=== PATIENT | male | born 1965 | race Caucasian/White ===

== ENCOUNTER 2022-03-15 13:53 | Inpatient (IN) | payer OTHER ==
[~2022-03-15] VITALS: Ht 175.3 cm; Wt 81.1 kg
[2022-03-15] MEDS ORDERED: SODIUM CHLORIDE 0.9% 100 ML ONE (14:09)
[2022-03-15] MEDS ORDERED: IOHEXOL 350 MG/ML 100 ML VIAL ONE (14:09)
[2022-03-15 14:24] LABS: BASOPHILS % (AUTO) 0.6 % (0.0-2.0); EOSINOPHILS % (AUTO) 1.1 % (1.0-6.0); HEMATOCRIT 43.5 % (41-53); HEMOGLOBIN 14.6 g/dL (13.5-17.5); LYMPHOCYTES # (AUTO) 1.7 K/uL (1.0-4.8); LYMPHOCYTES % (AUTO) 27.1 % (22.0-44.0); MEAN CORPUSCULAR HEMOGLOBIN 28.7 pg (26.0-34.0); MEAN CORPUSCULAR HGB CONC 33.6 G/dL (31.0-37.0); MEAN CORPUSCULAR VOLUME 85 fL (80-100); MONOCYTES # (AUTO) 0.6 K/uL (0.1-1.0); MONOCYTES % (AUTO) 8.7 % (2.0-9.0); NEUTROPHILS % (AUTO) 62.5 % (40.0-70.0); PLATELET COUNT (AUTO) 267 K/uL (150-450); RED BLOOD CELL COUNT(AUTO) 5.09 MIL/uL (4.50-5.90); RED CELL DISTRIBUTION WIDTH 13.9 % (11.5-14.5)
[2022-03-15 14:33] LABS: ANION GAP 8 mmol/L (8-16); CALCIUM, TOTAL 8.8 mg/dL (8.8-10.5); CARBON DIOXIDE 29 mmol/L (22-29); CHLORIDE 104 mmol/L (98-107); CREATININE 1.22 mg/dL (0.60-1.30); GLUCOSE,RANDOM 130 mg/dL (70-110); POTASSIUM 3.5 mmol/L (3.5-5.1); SODIUM SERUM 141 mmol/L (136-145); UREA NITROGEN, BLOOD 20 mg/dL (7-18)
[2022-03-15 14:34] LABS: GLOMERULAR FILTR. RATE CALC > 60 mL/min (>60)
[2022-03-15 14:37] LABS: PROTHROMBIN TIME 10.4 SEC (9.4-11.6)
[2022-03-15 14:41] LABS: ALANINE AMINOTRANSFERASE 41 U/L (12-78); ALKALINE PHOSPHATASE 81 U/L (46-116); ASPARTATE AMINOTRANSFERASE 25 U/L (15-37); BILIRUBIN,TOTAL 0.6 mg/dL (0.1-1.0); TOTAL PROTEIN, SERUM 7.7 g/dL (6.4-8.2)
[2022-03-15] MEDS ORDERED: HydrALAZINE HCL 20 MG/ML VIAL IVP ONE (14:45)
[2022-03-15] MEDS ORDERED: ASPIRIN 81 MG CHEWABLE TABLET PO ONE (15:00)
[2022-03-15] MEDS: AmLODIPine BESYLATE 10 MG TABLET PO SCH (15:15)
[2022-03-15] MEDS ORDERED: DEXTROSE 50%-WATER 25 GM/50 ML SYRINGE IVP PRN (15:30)
[2022-03-15] MEDS ORDERED: ACETAMINOPHEN 325 MG TABLET PO PRN (15:30)
[2022-03-15] MEDS ORDERED: INSULIN LISPRO 100 UNITS/ML SQ PRN (15:30)
[2022-03-15] MEDS: ATORVASTATIN CALCIUM 20 MG TABLET PO SCH (16:28)
[2022-03-15] MEDS: HEPARIN SODIUM,PORCINE 5,000 UNITS/ML VIAL SQ SCH (16:29)
[2022-03-15 17:02] LABS: GLUCOMETER DEV NAME(LOC) ERT.5; GLUCOSE,POINT OF CARE 93 MG/DL (70-110)
[2022-03-15 17:39] LABS: COVID AG,FIA SOURCE NASAL SWAB
[2022-03-15] MEDS: DOCUSATE SODIUM 100 MG CAPSULE PO SCH (21:00)
[2022-03-16 01:30] VITALS: BP 147/91
[2022-03-16 05:09] VITALS: BP 124/68
[2022-03-16 07:29] LABS: CHOL/HDL RATIO 7.6 (4.2-7.3)
[2022-03-16 08:00] VITALS: BP 140/84
[2022-03-16] MEDS ORDERED: FAMOTIDINE 20 MG TABLET PO SCH (09:00)
[2022-03-16] MEDS ORDERED: ASPIRIN 81 MG CHEWABLE TABLET PO SCH (09:00)
[2022-03-16] MEDS: HEPARIN SODIUM,PORCINE 5,000 UNITS/ML VIAL SQ SCH ×3 (09:06→16:10)
[2022-03-16] MEDS: ATORVASTATIN CALCIUM 20 MG TABLET PO SCH (09:07)
[2022-03-16] MEDS: AmLODIPine BESYLATE 10 MG TABLET PO SCH (09:07)
[2022-03-16] MEDS: DOCUSATE SODIUM 100 MG CAPSULE PO SCH (09:08)
[2022-03-16 09:21] LABS: GLUCOMETER DEV NAME(LOC) 5N.3; GLUCOSE,POINT OF CARE 100 MG/DL (70-110)
[2022-03-16 12:00] VITALS: BP 141/90
[2022-03-16 12:06] LABS: GLUCOMETER DEV NAME(LOC) 5S.2B; GLUCOSE,POINT OF CARE 107 MG/DL (70-110)
[2022-03-17 08:16] LABS: GLUCOMETER DEV NAME(LOC) 5S.2B; GLUCOSE,POINT OF CARE 136 MG/DL (70-110)
[2022-03-17] MEDS ORDERED: ATORVASTATIN CALCIUM 40 MG TABLET PO SCH (09:00)
[2022-03-17] MEDS ORDERED: CLOPIDOGREL BISULFATE 75 MG TABLET PO SCH (09:00)
== END 2022-03-16 21:00 | disposition left against medical advice (07) | DRG 45 ==
LOC: EMS 14:05 → 5S 03-16 00:24
PROVIDERS: ADMIT Internal Medicine; ATTEND Internal Medicine
DX: I63.9 Cerebral infarction, unspecified (principal); E11.9 Type 2 diabetes mellitus without complications; E78.5 Hyperlipidemia, unspecified; Z20.822 Contact with and (suspected) exposure to COVID-19; I10 Essential (primary) hypertension; Z79.02 Long term (current) use of antithrombotics/antiplatelets; Z83.3 Family history of diabetes mellitus; Z86.73 Personal history of transient ischemic attack (TIA), and cerebral infarction without residual deficits; Z79.899 Other long term (current) drug therapy
CPT/HCPCS: 70496; 70498; 71045; 80053; 80061; 82948; 82962; 84484; 85025; 85610; 85730; 86850; 86900; 86901; 93005; 97116; 97161; 97165; 97535; 99285; J0360; J1644; J7050; Q9967; 36415-L1; 36415-TC; 70450; 70450-TC

== ENCOUNTER 2024-08-09 13:51 | Emergency (ER) | payer OTHER ==
[~2024-08-09] VITALS: Ht 170.2 cm; Wt 81.8 kg
[~2024-08-09 13:51] MED LIST: AMOX-457 PO
[2024-08-09] MEDS ORDERED: ATOR10TA PO (14:26)
[2024-08-09] MEDS ORDERED: METF-1211 PO (14:26)
[2024-08-09] MEDS ORDERED: ASPI81TA87 PO (14:26)
[2024-08-09] MEDS ORDERED: BLOOD PRESSURE PO (14:26)
[2024-08-09 14:27] VITALS: TEMP 98.2
[2024-08-09] MEDS: RABIES VACCINE, HUMAN DIPLOID/PF 2.5 UNITS/ML VIAL IM. ONE (16:13)
[2024-08-09 16:26] VITALS: BP 124/85; PULSE 81; RESP 18; O2SAT 95
== END 2024-08-09 16:28 | disposition home or self-care (01) ==
LOC: EMS 13:51
DX: S61.250D Open bite of right index finger without damage to nail, subsequent encounter (principal); E11.9 Type 2 diabetes mellitus without complications; I10 Essential (primary) hypertension; Z79.82 Long term (current) use of aspirin; Z23 Encounter for immunization; Z20.3 Contact with and (suspected) exposure to rabies; Z79.899 Other long term (current) drug therapy; W54.0XXD Bitten by dog, subsequent encounter
CPT/HCPCS: 90471; 90675; 99281